=== PATIENT | male | born 1995 | race African-American/Black ===

== ENCOUNTER 2020-06-10 16:41 | Emergency (ER) | payer MEDICAID, OTHER ==
[~2020-06-10] VITALS: Ht 167.6 cm; Wt 54.0 kg
[2020-06-10] MEDS ORDERED: IBUPROFEN 600MG TABLET PO ONE (18:15)
[2020-06-10 18:21] VITALS: BP 112/76
== END 2020-06-10 18:21 | disposition home or self-care (01) ==
LOC: ER 16:41
DX: S09.8XXA Other specified injuries of head, initial encounter (principal); W22.8XXA Striking against or struck by other objects, initial encounter; Y93.89 Activity, other specified; Y92.89 Other specified places as the place of occurrence of the external cause; M25.512 Pain in left shoulder; Y99.8 Other external cause status
CPT/HCPCS: 73030; 99284